=== PATIENT | male | born 1995 | race Two or more races ===

== ENCOUNTER 2023-09-02 15:03 | Emergency (ER) | payer OTHER, SELFPAY ==
[2023-09-02 15:11] VITALS: BP 139/93; BP 140/90; PULSE 120; PULSE 95; RESP 19; TEMP 36.4; O2SAT 96; O2SAT 97; BMI 31.5
[2023-09-02 15:18] LABS: Glucose, Whole Blood 97 mg/dL (60-115)
--- NOTE | 2023-09-02 15:19 | PC.NURSE ---
patient a&ox3, vss, pt repeat poc performed was 97, pt offered food but refused po at this time, pt is attempting to find his cell phone which he believes may have been left on the train he was on. provider aware of blood sugar, call [place] within reach, will continue to monitor.
--- NOTE | 2023-09-02 15:31 | PC.NURSE ---
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 pt is upset about the loss of his cell phone as it had his insurance and debit cards with it. attempts to call his cell phone were not successful, pt is also refusing labs all labs and treatment at this time.
--- NOTE | 2023-09-02 15:36 | ED.GENADULT ---
HPI - General Adult General Chief complaint: General Medical Stated complaint: FOUND UNRESPONSIVE, BGL OF 44, D10 INFUSING Time Seen by Provider: 09/02/23 15:32 Source: patient Mode of arrival: EMS Limitations: no limitations History of Present Illness HPI narrative: The emergency room via ambulance after being found unresponsive. Patient was on an [employer] train traveling from [place] to [place]. Seems that patient was snoring very loudly and unable to be woken up. Passengers alerted the staff on the train and EMS was called. Patient was found unresponsive, point of care was 44. Patient was given D10 which helped to increase the glucose to 147. Patient states that he is known to be diabetic. Patient states that his glucose skin monitor device is not working well. Patient states that this morning, patient had a larger breakfast than usual and decided to inject himself with a larger amount of history a dose of insulin. Related Data Previous Rx's Medication Instructions Recorded glucose 4 gram chewable tablet 4 g PO Q15M PRN hypoglycemia #10 09/02/23 tabs Allergies Allergy/AdvReac Type Severity Reaction Status Date / Time No Known Allergies Allergy Verified 09/02/23 15:11 Review of Systems Review of Systems: Constitutional : No Weight loss, No Fever, No Chills, No Night Sweats, No Fatigue, No Malaise ENT/Mouth : No Hearing loss, No Ear Pain, No Nasal Congestion, No Sinus Pain, No Hoarseness, No sore throat, No Rhinorrhea, No Swallowing Difficulty Eyes: No Eye Pain, No Swelling, No Redness, No Foreign Body, No Discharge, No Vision Changes Cardiovascular : No Chest Pain, No SOB, No Dyspnea on Exertion, No Orthopnea, No Edema, No Palpitations Respiratory : No Cough, No Sputum, No Wheezing, No Smoke Exposure, No Dyspnea Gastrointestinal : No Nausea, No Vomiting, No Diarrhea, No Constipation, No abdominal Pain, No Hematochezia, No Melena Genitourinary : no irregular bleeding, No Dysuria, No Urinary Frequency, No Hematuria, No Urinary Incontinence, No Urgency, No Flank Pain, No Urinary Flow Changes, No Hesitancy Musculoskeletal : No joint pain, No Myalgias, No Joint Swelling Skin : No Skin Lesions, No rash Neuro : No Weakness, No Numbness, No Paresthesias, No Loss of Consciousness, No Dizziness, No Headache Psych : No Anxiety/Panic, No Depression, No SI/HI/AH/VH, No Social Issues, Heme/Lymph: No Bruising, No Bleeding,No Lymphadenopathy Endocrine : No Polyuria, No Polydipsia, No Temperature Intolerance, low blood sugar PMF Past Medical History Medical History Diabetes Social History Smoked in Last 30 Days: No Use of substances other than those prescribed or required for medical reasons: No Physical Exam ED Vital Signs: Vital Signs - 24 hr 09/02/23 15:11 Temperature 97.5 F Pulse Rate 95 Respiratory Rate 19 Blood Pressure 139/93 H Pulse Oximetry 97 Oxygen Delivery Method Room Air BMI result Body Mass Index 31.5 Const Other: Appearance: Alert. Oriented X3. No acute distress. Eyes: Pupils equal, round and reactive to light. ENT: Pharynx normal. Neck: Normal inspection. Neck supple. No lymph nodes noted. No crepitus CVS: Normal heart rate and rhythm. Pulses normal. Normal S1 and S2 Respiratory: No respiratory distress. Breath sounds normal. No Wheezing. No rales Abdomen: Soft and nontender. No rigidity. No distention. Skin: Skin warm and dry. Normal skin color. Normal skin turgor. Extremities: No lower extremity edema. No Lacerations. No Rash Neuro: Oriented X 3. No motor deficit. No sensory deficit. Moving all extremities. No slurred speech. CN 2 through 12 grossly intact Psych: calm, cooperative, normal affect Course Course Course Narrative: -patient is awake, alert and oriented x3, no acute distress. -on arrival to the ED, point of care is 97. Within an hour we recheck that, patient's glucose is 67, patient awake and alert asymptomatic. -patient refusing any labs. Patient states that he needs to get home, discussed with the patient that his glucose keeps dropping and it may eventually dropped enough to the point he may lose consciousness again. Patient states that he is aware of this. Patient states that he will start eating as soon as he gets discharged. Patient aware of the risks of leaving the emergency room with a low blood sugar including . Medical Decision Making Lab Data Labs: Lab Results 09/02/23 Range/Units 15:14 POC Glucose 97 (60-115) mg/dL Critical Care Time Critical Care Time Critical Care Time: Yes Total Critical Care Time: 45 Attestation: I have personally provided critical care time. Time includes review of lab data, radiology results, discussion with consultants, and monitoring for potential decompensation. Intervention performed as documented. Discharge Plan Discharge Clinical Impression: Hypoglycemia Patient Disposition: Left Against Medical Advice Instructions: Hypoglycemia in a Person with Diabetes (ED) Additional Instructions: Please follow-up with your primary care physician tomorrow. If you have any worsening or new symptoms, please return to the emergency room or call 911 Prescriptions: New glucose 4 gram tablet,chewable 4 g PO Q15M PRN (Reason: hypoglycemia) Qty: 10 0RF Rx Instructions: until symptoms of low blood sugar are controlled
[2023-09-02 15:41] LABS: Glucose, Whole Blood 62 mg/dL (60-115)
--- NOTE | 2023-09-02 15:44 | PC.NURSE ---
repeat poc was obtained, pts blood sugar went down to 62, pt was again offered PO. pt stated he would take the sandwich and drink with him as he doesnt want treatment. pt is being discharged against medical advice
--- NOTE | 2023-09-02 17:08 | PC.NURSE ---
pt refused to sign discharge ama paperwork.
== END 2023-09-02 17:08 | disposition left against medical advice (07) ==
LOC: HO.ED 15:55
PROVIDERS: Emergency Provider Emergency Medicine
DX: E11.649 Type 2 diabetes mellitus with hypoglycemia without coma (principal); Z79.4 Long term (current) use of insulin
CPT/HCPCS: 82947; 99282; 99284